=== PATIENT | female | born 1985 | race Caucasian/White ===

== ENCOUNTER 2017-03-19 16:32 | Emergency (ER) | payer OTHER ==
[2017-03-19 16:51] VITALS: BP 148/65; BMI 20.9
--- NOTE | 2017-03-19 16:51 | PDOC ---
Rapid Medical Evaluation Time Seen by Provider: 03/19/17 16:45 Medical Evaluation: Allergies Allergy/AdvReac Type Severity Reaction Status Date / Time aripiprazole [From [facility]] Allergy Verified 01/08/15 19:01 03/19/17 16:45 I have performed a brief in-person evaluation of this patient. The patient presents with a chief complaint of dry cough and congestion x 3 weeks Reports clear discharge from nose, both ears feeling blocked up and unable to produce mucus with coughing. States used robitussin, theraflu and other otc medication with no relief Pertinent physical exam findings: NAD HEENT: neck supple, no sinus tenderness, pharynx clear lungs clear bilaterally I have ordered the following: influenza swab The patient will proceed to the Ed for further evaluation.
[2017-03-19] MEDS ORDERED: ACETAMINOPHEN 325 MG TABLET (FP) PO ONE (19:07)
--- NOTE | 2017-03-19 19:16 | PDOC ---
History of Present Illness - General Chief Complaint: Cold Symptoms Stated Complaint: COLD SYMPTOMS Time Seen by Provider: 03/19/17 16:45 History Source: Patient Exam Limitations: No Limitations - History of Present Illness Initial Comments: CHIEF COMPLAINT: 32 y/o female with low grade fever c/o sinus pressure and cough x 3 weeks. HISTORY OF PRESENT ILLNESS: The patient states she's felt warm but never took a temp at home. She states she has a dry cough and sinus pressure. SHe has taken robitussin, theraflu, tylenol with no relief. She denies changes in vision/hearing, earache, sore throat, n/v/d, CP, SOB, abd pain. Vital signs on arrival are notable for pulse of 105 secondary to temp of 99.7. REVIEW OF SYSTEMS: GENERAL/CONSTITUTIONAL: No fever HEAD, EYES, EARS, NOSE AND THROAT: No change in vision. No ear pain or discharge. No sore throat. +sinus pressure CARDIOVASCULAR: No chest pain or shortness of breath. RESPIRATORY: +dry cough. No wheezing or hemoptysis. GASTROINTESTINAL: No nausea, vomiting, diarrhea. GENITOURINARY: No dysuria, frequency, or change in urination. MUSCULOSKELETAL: No joint or muscle swelling or pain. No neck or back pain. SKIN: No rash or easy bruising. NEUROLOGIC: No headache, vertigo, loss of consciousness, or loss of sensation. PHYSICAL EXAM: GENERAL: The patient is awake, alert, and fully oriented, in no acute distress. Very infrequent dry cough. HEAD: Normal with no signs of trauma. Pain with palpation of frontal and maxillary sinuses. ENT: Pupils equal, round and reactive to light, extraocular movements intact, sclera anicteric, conjunctiva clear. LUNGS: Clear to auscultation bilaterally. Normal excursion. No respiratory distress or use of accessory muscles. CV: RRR, S1/S2, no MRG. Cap refill < 2 sec. ABDOMEN: Soft, non-distended, non-tender even to deep palpation, no hepatomegaly or splenomegaly, no masses. EXTREMITIES: Normal range of motion, no edema. NEUROLOGICAL: Normal speech, normal gait. CN II-XII grossly intact. PSYCH: Normal mood, normal affect. SKIN: Warm, dry, normal turgor, no rashes or lesions noted. Past History - Past Medical History Allergies/Adverse Reactions: Allergies Allergy/AdvReac Type Severity Reaction Status Date / Time aripiprazole [From [facility]] Allergy Verified 03/19/17 16:45 Home Medications: Ambulatory Orders Azithromycin [Zithromax 250mg Tablets -] 250 mg PO UTDICT #6 tab 03/19/17 Cetirizine HCl/Pseudoephedrine [Zyrtec-D Tablet] 1 each PO DAILY #5 tab.er.12h 03/19/17 COPD: No DVT: No Psychiatric Problems: Yes (BIPOLAR) - Surgical History Abdominal Surgery: Yes - Reproductive History (#): 2 Para: 1 - Immunization History Immunization Up to Date: Yes - Suicide/Smoking/Psychosocial Hx Smoking History: Never smoked Have you smoked in the past 12 months: No Information on smoking cessation initiated: No Hx Alcohol Use: No Drug/Substance Use Hx: No Substance Use Type: None *Physical Exam - Vital Signs Last Vital Signs Temp Pulse Resp BP Pulse Ox 99.7 F H 105 H 18 148/65 100 03/19/17 16:46 03/19/17 16:46 03/19/17 16:46 03/19/17 16:46 03/19/17 16:46 ED Treatment Course - ADDITIONAL ORDERS Additional order review: 03/19/17 16:51 Influenza Types A,B Antigen ([facility]) - Preliminary Nasopharyngeal Swab - Preliminary Medical Decision Making - Medical Decision Making A/P: 32 y/o female with a sinus infection. Plan is as follows: 1. hcg Influenza A&B - negative hcg - negative will give sudafed and discharge to home with rx for claritin D and a zpack. Suggested motrin for head pressure as well. Pt instructed to take entire course of azithro and return to the ER with any worsening or concerning symptoms. The patient verbalizes understanding of all instructions, has no further questions and is awaiting discharge. *DC/Admit/Observation/Transfer Diagnosis at time of Disposition: Sinus infection Qualifiers: Sinusitis location: frontal Chronicity: acute Recurrence: non-recurrent Qualified Code(s): J01.10 - Acute frontal sinusitis, unspecified - Discharge Dispostion Disposition: HOME Condition at time of disposition: Improved - Referrals Referrals: Florence Weinberg MD [Primary Care Provider] - - Patient Instructions Printed Discharge Instructions: DI for Sinusitis Additional Instructions: DIscharge Instructions: -you have a sinus infection -2 prescriptions have been sent to your pharmacy; please take as prescribed -take 600mg of Ibuprofen every 6 hours with food for fever/head congestion -Drink plenty of fluids -Return to the ER with any worsening or concerning symptoms - Post Discharge Activity
[2017-03-19] MEDS ORDERED: ACETAMINOPHEN 325 MG TABLET (FP) ONE (19:19)
[2017-03-19] MEDS ORDERED: IBUPROFEN 600 MG TABLET (FP) PO ONE ×2 (20:22→20:25)
[2017-03-19] MEDS ORDERED: PSEUDOEPHEDRINE HCL 60 MG TABLET PO ONE (20:22)
[2017-03-19] MEDS ORDERED: PSEUDOEPHEDRINE HCL 60 MG TABLET ONE (20:27)
[2017-03-19 20:38] VITALS: TEMP 99.6
[2017-03-19 20:58] VITALS: PULSE 92
== END 2017-03-19 21:08 | disposition home or self-care (01) ==
LOC: JERFT 16:32 → JER 16:32 → JERFT 21:08
DX: J01.10 Acute frontal sinusitis, unspecified (principal); F31.9 Bipolar disorder, unspecified
CPT/HCPCS: 84703; 87804; 99281-25